=== PATIENT | female | born 1945 | race African-American/Black ===

== ENCOUNTER 2017-11-16 10:44 | Emergency (ER) | payer MEDICARE, MEDICAID | END 2017-11-16 12:40 | disposition home or self-care (01) | LOC: D.ER 10:44 | DX: J20.9 Acute bronchitis, unspecified (principal); J06.9 Acute upper respiratory infection, unspecified; I10 Essential (primary) hypertension ==

== ENCOUNTER 2017-12-28 17:20 | Emergency (ER) | payer MEDICARE, MEDICAID | END 2017-12-28 20:00 | disposition home or self-care (01) | LOC: D.ER 17:20 | DX: S60.562A Insect bite (nonvenomous) of left hand, initial encounter (principal); W57.XXXA Bitten or stung by nonvenomous insect and other nonvenomous arthropods, initial encounter; Y93.89 Activity, other specified; Y92.019 Unspecified place in single-family (private) house as the place of occurrence of the external cause; I10 Essential (primary) hypertension ==

== ENCOUNTER 2018-01-02 08:29 | Emergency (ER) | payer MEDICARE, MEDICAID | END 2018-01-02 09:58 | disposition home or self-care (01) | LOC: D.ER 08:29 | DX: R11.0 Nausea (principal) ==

== ENCOUNTER 2018-01-11 09:56 | Emergency (ER) | payer MEDICARE, MEDICAID | END 2018-01-11 11:20 | disposition home or self-care (01) | LOC: D.ER 09:56 | DX: S60.221A Contusion of right hand, initial encounter (principal); X58.XXXA Exposure to other specified factors, initial encounter; Y93.89 Activity, other specified; Y92.019 Unspecified place in single-family (private) house as the place of occurrence of the external cause; I10 Essential (primary) hypertension ==

== ENCOUNTER 2018-02-21 15:30 | Emergency (ER) | payer MEDICARE, MEDICAID | END 2018-02-21 17:02 | disposition home or self-care (01) | LOC: D.ER 15:30 | DX: T21.11XA Burn of first degree of chest wall, initial encounter (principal); T79.9XXA Unspecified early complication of trauma, initial encounter; X11.8XXA Contact with other hot tap-water, initial encounter; Y93.89 Activity, other specified; Y92.019 Unspecified place in single-family (private) house as the place of occurrence of the external cause ==